=== PATIENT | female | born 1995 | race Two or more races ===

== ENCOUNTER 2023-01-08 17:51 | Emergency (ER) | payer OTHER ==
[~2023-01-08] VITALS: Ht 149.9 cm; Wt 77.1 kg
[2023-01-08] MEDS ORDERED: ESCITALOPRA5 MG/5 ML PO (19:01)
[2023-01-08] MEDS ORDERED: PEPCID AC10 MG PO (19:02)
[2023-01-08] MEDS ORDERED: BUSPIRONE HCL7.5 MG PO (19:02)
[2023-01-08 21:11] LABS: HEMATOCRIT 36.3 % (36.0-45.00); HEMOGLOBIN 12.7 g/dL (12.0-15.00); MEAN CELL VOLUME 81.7 fL (80.00-100.00); MEAN CORPUSCULAR HEMOGLOBIN 28.6 pg (27.00-32.0); PLATELET COUNT 260 K/uL (150-450); RED BLOOD COUNT 4.44 M/uL (4.00-6.00); RED CELL DISTRIBUTION WIDTH 13.9 % (11.5-14.5)
[2023-01-08 21:30] LABS: INR 1.1; PARTIAL THROMBOPLASTIN TIME 28.1 SECONDS (22.0-34.0); PROTHROMBIN TIME 11.5 SECONDS (9.0-11.5)
[2023-01-08 21:42] LABS: ALT/SGPT 43 U/L (12-78); ANION GAP 10 (10.0-20.0); AST/SGOT 21 U/L (15-37); BILIRUBIN,CONJUGATED < 0.10 mg/dL (0.0-0.2); BLOOD UREA NITROGEN 18 mg/dL (7-18); BUN CREA RATIO 24 (7.0-25.0); CALCIUM 8.5 mg/dL (8.5-10.1); CARBON DIOXIDE 24 mEq/L (21-32); CHLORIDE 108 mmol/L (98-107); CREATININE SERUM 0.76 mg/dL (0.55-1.02); GFR 90.62; GLUCOSE FASTING 101 mg/dL (65-100); LIPASE 18 U/L (13-75); OSMOLALITY SERUM 278 MOSM/KG (275-295); POTASSIUM 4.25 mEq/L (3.5-5.1); SODIUM 138 mmol/L (136-145)
[2023-01-08 21:50] LABS: PH,URINE 5.5 (5.0-8.0); URINE APPEARANCE Clear; URINE BILIRRUBIN Negative (NEGATIVE); URINE BLOOD Negative; URINE COLOR Yellow; URINE GLUCOSE Negative (NEGATIVE); URINE LEUKOCYTE Moderate; URINE NITRATE Negative; URINE PROTEIN Negative (NEGATIVE); URINE UROBILINOGEN 0.2 E.U./dl
[2023-01-08 21:53] LABS: URINE BACTERIA 1558.4 uL (0.0-1933); URINE EPITHELIAL CELLS 38.8 uL (0.0-38.8); URINE RBC 7.1 uL (0.0-20.8); URINE WBC 294.8 uL (0.0-23.2)
[2023-01-08 22:07] LABS: URINE MUCUS SCANT
[2023-01-08] MEDS ORDERED: PERCOGESIC EXT1 EACH PO (23:50)
== END 2023-01-09 00:25 | disposition home or self-care (01) ==
LOC: ER 17:51
PROVIDERS: General Practice
DX: R10.11 Right upper quadrant pain (principal); Z91.018 Allergy to other foods; F41.8 Other specified anxiety disorders; N83.209 Unspecified ovarian cyst, unspecified side

== ENCOUNTER 2024-04-30 12:29 | Emergency (ER) | payer OTHER ==
[~2024-04-30] VITALS: Ht 149.9 cm; Wt 81.6 kg
[~2024-04-30 12:29] MED LIST: BUSPIRONE HCL7.5 MG PO; ESCITALOPRA5 MG/5 ML PO; PEPCID AC10 MG PO; PERCOGESIC EXT1 EACH PO
[2024-04-30] MEDS ORDERED: DEXAMETHASONE SODIUM PHOSPHATE 4 MG/ML VIAL IM STA (17:05)
[2024-04-30] MEDS ORDERED: ORPHENADRINE CITRATE 30 MG/ML AMPUL IM STA (17:07)
[2024-04-30] MEDS ORDERED: DRAMAMINE LESS25 MG PO (17:22)
[2024-04-30] MEDS ORDERED: DEXAMETHAS0.5 MG/5 M PO (17:24)
[2024-04-30] MEDS ORDERED: NORFLEX100MG PO (17:25)
[2024-04-30] MEDS ORDERED: METOCLOPRAMIDE HCL 5 MG/ML VIAL IM STA (17:28)
[2024-04-30] MEDS ORDERED: CIPRO HC OTIC S10 ML OT (18:31)
== END 2024-04-30 18:58 | disposition home or self-care (01) ==
LOC: ER 12:32
DX: R53.81 Other malaise (principal); H81.90 Unspecified disorder of vestibular function, unspecified ear; H81.91 Unspecified disorder of vestibular function, right ear; H81.92 Unspecified disorder of vestibular function, left ear; H81.93 Unspecified disorder of vestibular function, bilateral; Z91.018 Allergy to other foods